=== PATIENT | male | born 1980 | race Caucasian/White ===

== ENCOUNTER 2022-10-04 09:59 | Outpatient (CLI) | payer OTHER, SELFPAY ==
--- OUTSIDE RECORDS SUMMARY | 2022-10-04 10:03 | XMS_ITS ---
Author Name Dalton Roquehel Address [address] [place] [address] Organization [facility] Address [address] [place] [address] Care Team Providers Care Manager Roofing Name Role Phone Anne Roque Unavailable [phone] PROBLEMS Type Condition ICD9-CM Code ZZZ36-OE Code Onset Dates Condition Status SNOMED Code Problem Obstructive sleep apnea G47.33 Active 38343396 Problem Obesity E66.9 Active 703204743 Problem BMI 60.0-69.9, adult Z68.44 Active 408 778335 Problem Essential (primary) hypertension I10 Active 65760248 Problem Hypertriglyceridemia E78.1 Active 302 885413 Problem Hypercalcemia E83.52 Active [id number] ALLERGIES Substance Reaction Event Type Date Status Indomethacin Unknown Drug Allergy Oct, Active ENCOUNTERS Encounter Location Date Diagnosis [facility] [address] [place] [address] Oct, Hypertriglyceridemia E78.1 ; Essential (primary) hypertension I10 ; Impaired fasting blood sugar R73.01 ; General medical exam Z00.00 and Obstructive sleep apnea G47.33 [facility] [address] [place] [address] Aug, [facility] [address] [place] [address] 18 Aug, 2021 Hypertriglyceridemia E78.1 ; Essential (primary) hypertension I10 ; Impaired fasting blood sugar R73.01 ; General medical exam Z00.00 and Obstructive sleep apnea G47.33 [facility] [address] [place] [address] 12 Aug, 2021 [facility] [address] [place] [address] Aug, Essential (primary) hypertension I10 ; Impaired fasting blood sugar R73.01 and Hypertriglyceridemia E78.1 [place] [address] [place] [address] Jul, [facility] [address] [place] [address] Jul, [facility] [address] [place] [address] Jan, Essential (primary) hypertension I10 ; Hypertriglyceridemia E78.1 ; Impaired fasting blood sugar R73.01 ; General medical exam Z00.00 and Obstructive sleep apnea G47.33 [facility] [address] [place] [address] Jan, [facility] [address] [place] [address] Oct, Obesity E66.9 ; Essential (primary) hypertension I10 ; Hypertriglyceridemia E78.1 ; Impaired fasting blood sugar R73.01 ; General medical exam Z00.00 and Obstructive sleep apnea G47.33 [facility] [address] [place] [address] 14 Aug, 2020 Essential (primary) hypertension I10 ; Obesity E66.9 ; Hypertriglyceridemia E78.1 ; Impaired fasting blood sugar R73.01 ; General medical exam Z00.00 and Obstructive sleep apnea G47.33 [facility] [address] [place] 29 Jul, 2020 Essential (primary) hypertension I10 [facility] [address] [place] [address] 29 Jul, 2020 Hypertriglyceridemia E78.1 ; Impaired fasting blood sugar R73.01 and Essential (primary) hypertension I10 [facility] [address] [place] [address] June, Essential (primary) hypertension I10 ; Obesity E66.9 ; Hypertriglyceridemia E78.1 ; Impaired fasting blood sugar R73.01 ; Hypercalcemia E83.52 ; General medical exam Z00.00 ; Obstructive sleep apnea G47.33 ; Pain in toe of left foot M79.675 and Pain in toe of right foot M79.674 [facility] [place] [place] [address] Apr, Essential (primary) hypertension I10 ; Obesity E66.9 ; Hypertriglyceridemia E78.1 ; Impaired fasting blood sugar R73.01 ; Hypercalcemia E83.52 ; General medical exam Z00.00 and Obstructive sleep apnea G47.33 [facility] [address] [place], [place] 04 Apr, 2020 Essential (primary) hypertension I10 ; Impaired fasting blood sugar R73.01 and Hypertriglyceridemia E78.1 [facility] [address] [place] Mar, [facility] [address] [place] Dec, Essential (primary) hypertension I10 ; Hypertriglyceridemia E78.1 and Impaired fasting blood sugar R73.01 [facility] [address] [place] Oct, Essential (primary) hypertension I10 ; Obesity E66.9 ; Hypertriglyceridemia E78.1 ; Impaired fasting blood sugar R73.01 ; Hypercalcemia E83.52 ; General medical exam Z00.00 and Obstructive sleep apnea G47.33 [facility] [address] [place] Oct, [facility] [address] [place] [address] Sep, Essential (primary) hypertension I10 ; Obesity E66.9 ; Hypertriglyceridemia E78.1 ; Impaired fasting blood sugar R73.01 ; Hypercalcemia E83.52 and General medical exam Z00.00 [facility] [address] [place] [address] Sep, Essential (primary) hypertension I10 ; Hypertriglyceridemia E78.1 ; Impaired fasting blood sugar R73.01 and Hypercalcemia E83.52 [facility] [address] [place] [address] Sep, Essential (primary) hypertension I10 ; Hypertriglyceridemia E78.1 ; Impaired fasting blood sugar R73.01 and Hypercalcemia E83.52 [facility] [address] [place] [address] 05 Sep, 2019 Essential (primary) hypertension I10 [facility] [address] [place] Jul, Essential (primary) hypertension I10 and Obesity E66.9 [facility] [address] [place] [address] Apr, Essential (primary) hypertension I10 and Mass of left upper extremity R22.32 [facility] [address] [place] 18 Mar, 2019 Obesity E66.9 and Essential (primary) hypertension I10 [facility] [address] [place] Nov, Essential (primary) hypertension I10 [facility] [address] [place] Nov, Obesity E66.9 and Essential (primary) hypertension I10 [facility] [address] [place] 15 Nov, 2018 General medical exam Z00.00 ; Obesity E66.9 ; Essential (primary) hypertension I10 ; MEG (obstructive sleep apnea) G47.33 and Hypertriglyceridemia E78.1 [facility] [address] [place] 09 Nov, 2018 General medical exam Z00.00 ; Essential (primary) hypertension I10 and MEG (obstructive sleep apnea) G47.33 [facility] [address] [place] 08 Nov, 2018 General medical exam Z00.00 ; Essential (primary) hypertension I10 ; MEG (obstructive sleep apnea) G47.33 ; Screening for lipid disorders Z13.220 ; Screening for blood disease Z13.0 and Screening for diabetes Z13.1 [facility] [address] [place] [address] 07 Nov, 2018 General medical exam Z00.00 ; Obesity E66.9 ; Essential (primary) hypertension I10 ; MEG (obstructive sleep apnea) G47.33 ; Screening for lipid disorders Z13.220 ; Screening for blood disease Z13.0 ; Screening for diabetes Z13.1 and Screening for thyroid disease Z13.29 [facility] [address] [place] [address] Nov, [facility] [address] [place] [address] Nov, General medical exam Z00.00 ; Obesity E66.9 ; Essential (primary) hypertension I10 and MEG (obstructive sleep apnea) G47.33 [facility] [address] [place] [address] 10 Nov, 2017 General medical exam Z00.00 ; Obesity E66.9 ; Essential (primary) hypertension I10 and MEG (obstructive sleep apnea) G47.33 [facility] [address] [place] [address] Nov, Essential (primary) hypertension I10 [facility] [address] [place] [address] Nov, Essential (primary) hypertension I10 [facility] [address] [place] [address] Nov, [facility] [address] [place] [address] 04 Nov, 2017 General medical exam Z00.00 ; Obesity E66.9 ; Essential (primary) hypertension I10 ; BMI 60.0-69.9, adult Z68.44 ; Screening for blood disease Z13.0 ; Screening for diabetes Z13.1 ; Screening for lipid disorders Z13.220 ; Screening for thyroid disease Z13.29 and MEG (obstructive sleep apnea) G47.33 IMMUNIZATIONS No Known Immunizations SOCIAL HISTORY Qualifiers Date Never Smoker REASON FOR REFERRAL FUNCTIONAL STATUS PLAN OF CARE Activity Details Follow Up 4 Months Reason: Pending Test LIPID PANEL Pending Test CBC W/AUTO DIFF W/PL ATLET Pending Test COMPREHENSIVE METABO LIC PANEL Pending Test HEMOGLOBIN A1c Pending Test LIPID PANEL Pending Test Comp. Metabolic Pane l (14) Pending Test Comp. Metabolic Pane l (14) Pending Test LIPID PANEL Pending Test HEMOGLOBIN A1c Pending Test CBC W/AUTO DIFF W/PL ATLET Pending Test HEMOGLOBIN A1c Pending Test LIPID PANEL Pending Test Comp. Metabolic Pane l (14) Pending Test LIPID PANEL Pending Test HEMOGLOBIN A1c Pending Test Uric Acid, Serum Pending Test Comp. Metabolic Pane l (14) Pending Test LIPID PANEL Pending Test HEMOGLOBIN A1c Pending Test CBC W/AUTO DIFF W/PL ATLET Pending Test LIPID PANEL Pending Test HEMOGLOBIN A1c Pending Test Comp. Metabolic Pane l (14) Pending Test Comp. Metabolic Pane l (14) Pending Test LIPID PANEL Pending Test CBC W/AUTO DIFF W/PL ATLET Pending Test HEMOGLOBIN A1c Pending Test HEMOGLOBIN A1c Pending Test CBC W/AUTO DIFF W/PL ATLET Pending Test LIPID PANEL Pending Test Comp. Metabolic Pane l (14) Pending Test Comp. Metabolic Pane l (14) Pending Test LIPID PANEL Pending Test HEMOGLOBIN A1c Pending Test HEMOGLOBIN A1c Pending Test CBC W/AUTO DIFF W/PL ATLET Pending Test LIPID PANEL Pending Test Comp. Metabolic Pane l (14) Pending Test LIPID PANEL Pending Test CBC, Platelet, No Di fferential Pending Test HEMOGLOBIN A1c Pending Test LIPID PANEL Pending Test Comp. Metabolic Pane l (14) Pending Test Comp. Metabolic Pane l (14) Pending Test TSH Pending Test CBC W/AUTO DIFF Pending Test LIPID PANEL Pending Test HEMOGLOBIN A1c VITAL SIGNS Weight 505 lbs 2021-11-23 Weight 510.0 lbs 2021-09-11 Weight 505 lbs 2021-02-14 Weight 507.0 lbs 2020-09-07 Weight 495.0 lbs 2020-07-08 Weight 504.8 lbs 2020-05-05 Weight 505 lbs 2017-12-11 Weight 510 lbs 2017-12-04 Weight 512.2 lbs 2017-12-03 Weight 213.2 lbs 2017-12-02 Weight 505 lbs 2017-11-28 Temperature 98.2 degrees Fahrenheit Temperature 97.2 degrees Fahrenheit Temperature 98.3 degrees Fahrenheit Temperature 97.0 degrees Fahrenheit Temperature 98.0 degrees Fahrenheit Temperature 97.7 degrees Fahrenheit Temperature 96.7 degrees Fahrenheit Temperature 96.9 degrees Fahrenheit Temperature 96.6 degrees Fahrenheit Temperature 96.9 degrees Fahrenheit Temperature 98.4 degrees Fahrenheit Temperature 97.2 degrees Fahrenheit Temperature 97.2 degrees Fahrenheit Temperature 98.7 degrees Fahrenheit Temperature 98.6 degrees Fahrenheit Temperature 98.5 degrees Fahrenheit Temperature 98.6 degrees Fahrenheit Temperature 97.8 degrees Fahrenheit Temperature 97.6 degrees Fahrenheit Temperature 98.7 degrees Fahrenheit Heart Rate 70 /min 2021-11-23 Heart Rate 70 /min 2021-09-11 Heart Rate 65 /min 2021-02-14 Heart Rate 59 /min 2020-09-07 Heart Rate 79 /min 2020-07-08 Heart Rate 91 /min 2020-05-05 Heart Rate 85 /min 2019-11-06 Heart Rate 88 /min 2019-10-26 Heart Rate 84 /min 2019-10-07 Heart Rate 94 /min 2019-08-24 Heart Rate 107 /min 2019-05-07 Heart Rate 84 /min 2019-04-14 Heart Rate 100 /min 2018-12-10 Heart Rate 85 /min 2018-12-09 Heart Rate 80 /min 2018-12-03 Heart Rate 75 /min 2018-12-02 Heart Rate 83 /min 2018-12-01 Heart Rate 86 /min 2017-12-11 Heart Rate 95 /min 2017-12-04 Heart Rate 77 /min 2017-12-03 Heart Rate 72 /min 2017-12-02 Heart Rate 85 /min 2017-11-28 Respiratory Rate 16 /min 2021-11-23 Respiratory Rate 16 /min 2021-09-11 Respiratory Rate 16 /min 2021-02-14 Respiratory Rate 16 /min 2020-09-07 Respiratory Rate 16 /min 2020-07-08 Respiratory Rate 16 /min 2020-05-05 Respiratory Rate 16 /min 2019-11-06 Respiratory Rate 16 /min 2019-10-26 Respiratory Rate 16 /min 2019-10-07 Respiratory Rate 16 /min 2019-08-24 Respiratory Rate 16 /min 2019-05-07 Respiratory Rate 16 /min 2019-04-14 Respiratory Rate 16 /min 2018-12-10 Respiratory Rate 16 /min 2018-12-09 Respiratory Rate 16 /min 2018-12-03 Respiratory Rate 16 /min 2018-12-02 Respiratory Rate 18 /min 2018-12-01 Respiratory Rate 18 /min 2017-12-11 Respiratory Rate 20 /min 2017-12-04 Respiratory Rate 22 /min 2017-12-03 Respiratory Rate 22 /min 2017-12-02 Respiratory Rate 20 /min 2017-11-28 Height 72 in 2021-11-23 Height 72 in 2021-09-11 Height 72 in 2021-02-14 Height 72 in 2020-11-22 Height 72 in 2020-09-07 Height 72 in 2020-07-08 Height 72 in 2020-05-05 Height 72 in 2019-11-06 Height 72 in 2019-10-26 Height 72 in 2019-10-07 Height 72 in 2019-08-24 Height 72 in 2019-05-07 Height 72 in 2019-04-14 Height 72 in 2018-12-10 Height 72 in 2018-12-09 Height 72 in 2018-12-03 Height 72 in 2018-12-02 Height 72 in 2018-12-01 Height 72 in 2017-12-11 Height 72 in 2017-12-04 Height 72 in 2017-12-03 Height 72 in 2017-12-02 Height 72 in 2017-11-28 BMI 68.48 kg/m2 2021-11-23 BMI 69.16 kg/m2 2021-09-11 BMI 68.48 kg/m2 2021-02-14 BMI 68.75 kg/m2 2020-09-07 BMI 67.13 kg/m2 2020-07-08 BMI 68.46 kg/m2 2020-05-05 BMI 68.48 kg/m2 2017-12-11 BMI 69.16 kg/m2 2017-12-04 BMI 69.46 kg/m2 2017-12-03 BMI 28.91 kg/m2 2017-12-02 BMI 68.48 kg/m2 2017-11-28 Oximetry 97 % 2021-11-23 Oximetry 99 % 2021-09-11 Oximetry 95 % 2021-02-14 Oximetry 98 % 2020-09-07 Oximetry 98 % 2020-07-08 Oximetry 98 % 2020-05-05 Oximetry 96 % 2019-11-06 Oximetry 97 % 2019-10-26 Oximetry 98 % 2019-10-07 Oximetry 96 % 2019-08-24 Oximetry 96 % 2019-05-07 Oximetry 98 % 2019-04-14 Oximetry 96 % 2018-12-10 Oximetry 94 % 2018-12-09 Oximetry 96 % 2018-12-03 Oximetry 94 % 2018-12-02 Oximetry 98 % 2018-12-01 Oximetry 95 % 2017-12-11 Oximetry 98 % 2017-12-04 Oximetry 96 % 2017-12-03 Oximetry 98 % 2017-12-02 Oximetry 98 % 2017-11-28 Blood pressure systolic 132 mm Hg Blood pressure diastolic 86 mm Hg 2021-10 MEDICATIONS Medication Instructions Dosage Frequency Start Date End Date Duration Status predniSONE 10 MG Orally Three Times Per Day 1 tablet 5 days Not-Abhinav ing Bactrim DS 800-160 MG Orally Twice a day 1 tablet 12h 12 Apr, 2019 10 day(s) Not-Abhinav ing hydroCHLOROthiazide 25 MG Orally Once a day 1 tablet in the morning 24h 90 days Active Metoprolol Succinate ER 50 MG Orally Once a day 1 tablet 24h 90 days Active Blood Pressure Cuff - Applied to skin 1-2 times per day as needed as directed 90 days Active Metoprolol Succinate ER 50 MG TAKE 1 TABLET BY MOUTH EVERY DAY 90 Not-Abhinav ing Lisinopril 20 MG Orally Once a day 1 tablet 24h Not-Abhinav ing Lisinopril 40 MG TAKE 1 TABLET BY MOUTH EVERY DAY 90 Active amLODIPine Besylate 5 MG Orally once at night 1 tablet 14 Not-Abhinav ing Indomethacin 50 MG Orally Twice per day 1 capsule 7 day(s) Not-Abhinav ing hydroCHLOROthiazide 25 MG TAKE 1 TABLET BY MOUTH EVERY DAY IN THE MORNING 90 Active Lisinopril 40 TAKE 1 TABLET BY MOUTH EVERY DAY 30 Not-Abhinav ing PROCEDURES Procedure Date Ordered Result Body Site FCE-FCE BEHAVRL CNSL OBESITY 15 MIN Dec 09, 2018 E-E BEHAVRL CNSL OBESITY 15 MIN Dec 01, 2018 E-E BEHAVRL CNSL OBESITY 15 MIN Apr 14, 2019 E-FCE BEHAVRL CNSL OBESITY 15 MIN August 24, 2019 FCE-FCE BEHAVRL CNSL OBESITY 15 MIN Nov 28, 2017 FCE-FCE BEHAVRL CNSL OBESITY 15 MIN Nov 06, 2019 FCE-FCE BEHAVRL CNSL OBESITY 15 MIN Oct 26, 2019 RESULTS Name Result Date Reference Range LIPID PANEL 2021-09-04 CHOL/HDLC RATIO 3.5 <5.0 CHOLESTEROL, TOTAL 156 <200 HDL CHOLESTEROL 45 >OR = 40 LDL-CHOLESTEROL NON HDL CHOLESTEROL 111 <130 TRIGLYCERIDES 426 <150 HEMOGLOBIN A1c 2021-09-04 HEMOGLOBIN A1c 5.3 <5.7 CLIENT EDUCATION TRACKING 2021-09-04 CLIENT EDUCATION TRACKING COMPREHENSIVE METABOLIC PANEL 2021-09-04 ALBUMIN 4.2 3.6-5.1 ALBUMIN/GLOBULIN RATIO 1.3 1.0-2 .5 ALKALINE PHOSPHATASE 46 36-130 ALT 21 9-46 AST 21 10-40 BILIRUBIN, TOTAL 0.7 0.2-1.2 BUN/CREATININE RATIO NOT APPLICABLE 6-22 CALCIUM 9.3 8.6-10.3 CARBON DIOXIDE 27 20-32 CHLORIDE 103 98-110 CREATININE 1.04 0.60-1.29 EGFR 93 >OR = 60 GLOBULIN 3.2 1.9-3.7 GLUCOSE 95 65-99 POTASSIUM 4.4 3.5-5.3 PROTEIN, TOTAL 7.4 6.1-8.1 SODIUM 140 135-146 UREA NITROGEN (BUN) 16 7-25 CBC W/AUTO DIFF W/PLATLET 2021-09-04 ABSOLUTE BASOPHILS 76 0-200 ABSOLUTE EOSINOPHILS 91 15-500 ABSOLUTE LYMPHOCYTES 2052 850-390 0 ABSOLUTE MONOCYTES 540 200-950 ABSOLUTE NEUTROPHILS 4841 1500-78 00 BASOPHILS 1.0 EOSINOPHILS 1.2 HEMATOCRIT 48.7 38.5-50.0 HEMOGLOBIN 14.9 13.2-17.1 LYMPHOCYTES 27.0 MCH 28.8 27.0-33.0 MCHC 30.6 32.0-36.0 MCV 94.0 80.0-100.0 MONOCYTES 7.1 MPV 11.4 7.5-12.5 NEUTROPHILS 63.7 PLATELET COUNT 203 140-400 RDW 14.4 11.0-15.0 RED BLOOD CELL COUNT 5.18 4.20-5. 80 WHITE BLOOD CELL COUNT 7.6 3.8-1 0.8 Lipid Panel 2021-02-07 Cholesterol, Total 171 100-199 Comment: HDL Cholesterol 36 >39 LDL Chol Calc ([facility]) 85 0-99 Triglycerides 306 0-149 VLDL Cholesterol Satish 50 5-40 Comp. Metabolic Panel (14) 2021-02-07 A/G Ratio 1.6 1.2-2.2 Albumin 4.5 4.0-5.0 Alkaline Phosphatase 50 44-121 ALT (SGPT) 18 0-44 AST (SGOT) 18 0-40 Bilirubin, Total 0.8 0.0-1.2 BUN 16 6-24 BUN/Creatinine Ratio 15 9-20 Calcium 9.5 8.7-10.2 Carbon Dioxide, Total 22 20-29 Chloride 100 96-106 Creatinine 1.04 0.76-1.27 eGFR If Africn Am 103 >59 eGFR If NonAfricn Am 89 >59 Globulin, Total 2.8 1.5-4.5 Glucose 96 65-99 Potassium 4.5 3.5-5.2 Protein, Total 7.3 6.0-8.5 Sodium 138 134-144 Hemoglobin A1c 2021-02-07 Hemoglobin A1c 5.5 4.8-5.6 CBC W/AUTO DIFF W/PLATLET 2021-02-07 Baso (Absolute) 0.1 0.0-0.2 Basos 1 Not Estab. Eos 2 Not Estab. Eos (Absolute) 0.1 0.0-0.4 Hematocrit 44.2 37.5-51.0 Hematology Comments: Hemoglobin 14.2 13.0-17.7 Immature Cells Immature Grans (Abs) 0.0 0.0-0.1 Immature Granulocytes 0 Not Es tab. Lymphs 33 Not Estab. Lymphs (Absolute) 2.1 0.7-3.1 MCH 27.9 26.6-33.0 MCHC 32.1 31.5-35.7 MCV 87 79-97 Monocytes 8 Not Estab. Monocytes(Absolute) 0.5 0.1-0.9 Neutrophils 56 Not Estab. Neutrophils (Absolute) 3.6 1.4-7 .0 NRBC Platelets 262 150-450 RBC 5.09 4.14-5.80 RDW 13.8 11.6-15.4 WBC 6.3 3.4-10.8 LIPID PANEL 2020-08-22 CHOL/HDLC RATIO 3.3 <5.0 CHOLESTEROL, TOTAL 138 <200 HDL CHOLESTEROL 42 >OR = 40 LDL-CHOLESTEROL 67 NON HDL CHOLESTEROL 96 <130 TRIGLYCERIDES 234 <150 COMPREHENSIVE METABOLIC PANEL (DO NOT USE) 2020-08-22 ALBUMIN 3.9 3.6-5.1 ALBUMIN/GLOBULIN RATIO 1.3 1.0-2 .5 ALKALINE PHOSPHATASE 43 36-130 ALT 21 9-46 AST 20 10-40 BILIRUBIN, TOTAL 0.6 0.2-1.2 BUN/CREATININE RATIO NOT APPLICABLE 6-22 CALCIUM 9.3 8.6-10.3 CARBON DIOXIDE 27 20-32 CHLORIDE 104 98-110 CREATININE 1.15 0.60-1.35 eGFR 92 >OR = 60 eGFR NON-AFR. [place] 80 >OR = 60 GLOBULIN 2.9 1.9-3.7 GLUCOSE 101 65-99 POTASSIUM 4.7 3.5-5.3 PROTEIN, TOTAL 6.8 6.1-8.1 SODIUM 141 135-146 UREA NITROGEN (BUN) 20 7-25 CBC W/AUTO DIFF W/PLATLET 2020-08-22 ABSOLUTE BASOPHILS 29 0-200 ABSOLUTE EOSINOPHILS 133 15-500 ABSOLUTE LYMPHOCYTES 1879 850-390 0 ABSOLUTE MONOCYTES 563 200-950 ABSOLUTE NEUTROPHILS 3196 1500-78 00 BASOPHILS 0.5 EOSINOPHILS 2.3 HEMATOCRIT 42.3 38.5-50.0 HEMOGLOBIN 13.6 13.2-17.1 LYMPHOCYTES 32.4 MCH 28.8 27.0-33.0 MCHC 32.2 32.0-36.0 MCV 89.6 80.0-100.0 MONOCYTES 9.7 MPV 11.1 7.5-12.5 NEUTROPHILS 55.1 PLATELET COUNT 217 140-400 RDW 14.2 11.0-15.0 RED BLOOD CELL COUNT 4.72 4.20-5. 80 WHITE BLOOD CELL COUNT 5.8 3.8-1 0.8 HEMOGLOBIN A1c 2020-08-22 HEMOGLOBIN A1c 5.2 <5.7 URIC ACID 2020-07-08 URIC ACID 10.4 4.0-8.0 LIPID PANEL 2020-04-27 CHOL/HDLC RATIO 4.0 <5.0 CHOLESTEROL, TOTAL 151 <200 HDL CHOLESTEROL 38 >OR = 40 LDL-CHOLESTEROL NON HDL CHOLESTEROL 113 <130 TRIGLYCERIDES 423 <150 COMPREHENSIVE METABOLIC PANEL (DO NOT USE) 2020-04-27 ALBUMIN 4.3 3.6-5.1 ALBUMIN/GLOBULIN RATIO 1.5 1.0-2 .5 ALKALINE PHOSPHATASE 44 36-130 ALT 20 9-46 AST 21 10-40 BILIRUBIN, TOTAL 0.8 0.2-1.2 BUN/CREATININE RATIO NOT APPLICABLE -22 CALCIUM 9.3 8.6-10.3 CARBON DIOXIDE 27 20-32 CHLORIDE 99 98-110 CREATININE 1.05 0.60-1.35 eGFR 103 >OR = 60 eGFR NON-AFR. [place]IZ[place] 89 >OR = 60 GLOBULIN 2.8 1.9-3.7 GLUCOSE 100 65-99 POTASSIUM 4.2 3.5-5.3 PROTEIN, TOTAL 7.1 6.1-8.1 SODIUM 136 135-146 UREA NITROGEN (BUN) 18 7-25 CBC W/AUTO DIFF W/PLATLET 2020-04-27 ABSOLUTE BASOPHILS 41 0-200 ABSOLUTE EOSINOPHILS 171 15-500 ABSOLUTE LYMPHOCYTES 2148 850-390 0 ABSOLUTE MONOCYTES 484 200-950 ABSOLUTE NEUTROPHILS 3056 1500-78 00 BASOPHILS 0.7 EOSINOPHILS 2.9 HEMATOCRIT 43.1 38.5-50.0 HEMOGLOBIN 14.3 13.2-17.1 LYMPHOCYTES 36.4 MCH 29.5 27.0-33.0 MCHC 33.2 32.0-36.0 MCV 88.9 80.0-100.0 MONOCYTES 8.2 MPV 11.2 7.5-12.5 NEUTROPHILS 51.8 PLATELET COUNT 228 140-400 RDW 13.9 11.0-15.0 RED BLOOD CELL COUNT 4.85 4.20-5. 80 WHITE BLOOD CELL COUNT 5.9 3.8-1 0.8 HEMOGLOBIN A1c 2020-04-27 HEMOGLOBIN A1c 5.3 <5.7 LIPID PANEL 2019-10-19 CHOL/HDLC RATIO 4.1 <5.0 CHOLESTEROL, TOTAL 157 <200 HDL CHOLESTEROL 38 >OR = 40 LDL-CHOLESTEROL NON HDL CHOLESTEROL 119 <130 TRIGLYCERIDES 515 <150 COMPREHENSIVE METABOLIC PANEL (DO NOT USE) 2019-10-19 ALBUMIN 4.1 3.6-5.1 ALBUMIN/GLOBULIN RATIO 1.3 1.0-2 .5 ALKALINE PHOSPHATASE 45 36-130 ALT 21 9-46 AST 18 10-40 BILIRUBIN, TOTAL 0.7 0.2-1.2 BUN/CREATININE RATIO NOT APPLICABLE -22 CALCIUM 9.2 8.6-10.3 CARBON DIOXIDE 30 20-32 CHLORIDE 99 98-110 CREATININE 1.12 0.60-1.35 eGFR 96 >OR = 60 eGFR NON-AFR. [place]IZ[place] 83 >OR = 60 GLOBULIN 3.2 1.9-3.7 GLUCOSE 84 65-99 POTASSIUM 4.1 3.5-5.3 PROTEIN, TOTAL 7.3 6.1-8.1 SODIUM 139 135-146 UREA NITROGEN (BUN) 18 7-25 CBC W/AUTO DIFF W/PLATLET 2019-10-19 ABSOLUTE BASOPHILS 41 0-200 ABSOLUTE EOSINOPHILS 138 15-500 ABSOLUTE LYMPHOCYTES 2077 850-390 0 ABSOLUTE MONOCYTES 518 200-950 ABSOLUTE NEUTROPHILS 4126 1500-78 00 BASOPHILS 0.6 EOSINOPHILS 2.0 HEMATOCRIT 43.1 38.5-50.0 HEMOGLOBIN 14.0 13.2-17.1 LYMPHOCYTES 30.1 MCH 29.0 27.0-33.0 MCHC 32.5 32.0-36.0 MCV 89.2 80.0-100.0 MONOCYTES 7.5 MPV 10.5 7.5-12.5 NEUTROPHILS 59.8 PLATELET COUNT 248 140-400 RDW 13.1 11.0-15.0 RED BLOOD CELL COUNT 4.83 4.20-5. 80 WHITE BLOOD CELL COUNT 6.9 3.8-1 0.8 HEMOGLOBIN A1c 2019-10-19 HEMOGLOBIN A1c 5.5 <5.7 Comp. Metabolic Panel (14) 2019-08-24 A/G Ratio 1.8 1.2-2.2 Albumin 4.9 4.0-5.0 Alkaline Phosphatase 52 39-117 ALT (SGPT) 36 0-44 AST (SGOT) 37 0-40 Bilirubin, Total 1.0 0.0-1.2 BUN 13 6-20 BUN/Creatinine Ratio 11 9-20 Calcium 10.3 8.7-10.2 Carbon Dioxide, Total 22 20-29 Chloride 97 96-106 Creatinine 1.19 0.76-1.27 eGFR If Africn Am 89 >59 eGFR If NonAfricn Am 77 >59 Globulin, Total 2.8 1.5-4.5 Glucose 103 65-99 Potassium 5.2 3.5-5.2 Protein, Total 7.7 6.0-8.5 Sodium 137 134-144 LIPID PANEL 2018-12-03 CHOL/HDLC RATIO 4.2 <5.0 CHOLESTEROL, TOTAL 163 <200 HDL CHOLESTEROL 39 >40 LDL-CHOLESTEROL 78 NON HDL CHOLESTEROL 124 <130 TRIGLYCERIDES 384 <150 COMPREHENSIVE METABOLIC PANEL (DO NOT USE) 2018-12-03 ALBUMIN 4.2 3.6-5.1 ALBUMIN/GLOBULIN RATIO 1.2 1.0-2 .5 ALKALINE PHOSPHATASE 44 40-115 ALT 22 9-46 AST 20 10-40 BILIRUBIN, TOTAL 0.8 0.2-1.2 BUN/CREATININE RATIO NOT APPLICABLE 6-22 CALCIUM 9.6 8.6-10.3 CARBON DIOXIDE 29 20-32 CHLORIDE 102 98-110 CREATININE 1.01 0.60-1.35 eGFR 109 >OR = 60 eGFR NON-AFR. CITIZ[place] 94 >OR = 60 GLOBULIN 3.4 1.9-3.7 GLUCOSE 89 65-99 POTASSIUM 4.7 3.5-5.3 PROTEIN, TOTAL 7.6 6.1-8.1 SODIUM 138 135-146 UREA NITROGEN (BUN) 10 7-25 CBC W/AUTO DIFF W/PLATLET 2018-12-03 ABSOLUTE BASOPHILS 29 0-200 ABSOLUTE EOSINOPHILS 99 15-500 ABSOLUTE LYMPHOCYTES 2059 850-390 0 ABSOLUTE MONOCYTES 423 200-950 ABSOLUTE NEUTROPHILS 3190 1500-78 00 BASOPHILS 0.5 EOSINOPHILS 1.7 HEMATOCRIT 46.0 38.5-50.0 HEMOGLOBIN 15.0 13.2-17.1 LYMPHOCYTES 35.5 MCH 28.4 27.0-33.0 MCHC 32.6 32.0-36.0 MCV 87.1 80.0-100.0 MONOCYTES 7.3 MPV 10.3 7.5-12.5 NEUTROPHILS 55 PLATELET COUNT 257 140-400 RDW 14.3 11.0-15.0 RED BLOOD CELL COUNT 5.28 4.20-5. 80 WHITE BLOOD CELL COUNT 5.8 3.8-1 0.8 HEMOGLOBIN A1c 2018-12-03 HEMOGLOBIN A1c 5.4 <5.7 LIPID PANEL 2017-11-28 CHOL/HDLC RATIO 4.1 <5.0 COMPREHENSIVE METABOLIC PANEL (DO NOT USE) 2017-11-28 ALBUMIN 4.6 3.6-5.1 CBC W/AUTO DIFF W/PLATLET 2017-11-28 HEMOGLOBIN A1c 2017-11-28 HEMOGLOBIN A1c 5.3 <5.7 TSH 2017-11-28 TSH 2.08 0.40-4.50 REASON FOR VISIT lab review, fasting, pt has paper he needs filled out for work regarding his bloodpressure, med clearance for job, predisone refill, [place]:Refills, LAB REVIEW, rx refill, fasting, RX FILL, GOUT FLARE UP$15, RX FILL, Lab review, fasting labs, lab review, fasting labs, Lab review from 02/07, LISINOPRILREFILL, Fasting labs, LAB F/U, FASTING, Lab review, Fasting, rx/paper work, paperwork completed forsleep anpne and htn report for his job , LAB REVIEW, rx refill on lisinpril, LAB REVIEW, 3 mo fu, RX REFILL, labs, 3 month f/u, fasting labs, foot issue/pain on feet arounbd the bif toe there is pressure and very tender. feels on fire, LAB F/U, FASTING, lab review, Metoprolol refill, discharged if no office visit within 2 weeks, LAB F/U, lab f/u, lab, lab fu , fasting , labs , sleep study fu , voicemail, lab fu , needs refill on one medication, cannot recall which one specifically, fasting , fasting , fasting , Lab FU, Lab FU, Rx refill *, bp and lab fu , BP CHECK/ RX REFILL, ON LABS, LAB F/U, F/U LABS, lump on bicep/also bump under arm, RX, rx refill, lab fu , fasting , F/U BP, bp cuff, bpfu , LAB RESULTS, bp check, bp check, bp check , BP Check, cancellation, F/U & FILL OUT FORMS FOR WORK , Lab Review, BP Check, BP check, BP CHECK/BLOOD WORK Insurance Providers Health Insurance Type Health Plan Insurance Address Health Plan Insurance Phone Health Plan Insurance Name Health Plan Coverage Dates Member ID Patient Relationship to Subscriber Patient Address Patient Phone Patient Name Patient Date of Subscriber ID Subscriber Name Subscriber Date of Group No GEHA ASA [address] [facility] [id number] GEHA ASA self Taiwo Nevarez [place] [id number]
== END 2022-10-04 10:00 | disposition home or self-care (01) ==
PROVIDERS: PCP Emergency Medicine; Visit Provider Emergency Medicine
DX: Z00.00 Encounter for general adult medical examination without abnormal findings (principal); I10 Essential (primary) hypertension; E66.01 Morbid (severe) obesity due to excess calories; M10.9 Gout, unspecified; Z13.6 Encounter for screening for cardiovascular disorders
CPT/HCPCS: 80053; 80061; 84443; 84550